=== PATIENT | male | born 1945 | race Caucasian/White ===

== ENCOUNTER 2018-11-04 17:35 | Outpatient (CLI) | payer MEDICARE, MEDICAID | END 2018-11-04 17:36 | disposition home or self-care (01) | LOC: C.SLEEP 17:36 ==

== ENCOUNTER 2018-12-08 18:03 | Outpatient (CLI) | payer MEDICARE, MEDICAID | END 2018-12-08 18:04 | disposition home or self-care (01) | LOC: C.SLEEP 18:04 | DX: G47.33 Obstructive sleep apnea (adult) (pediatric) (principal) ==